=== PATIENT | female | born 1960 | race Caucasian/White ===

== ENCOUNTER 2017-11-26 08:43 | Emergency (ER) | payer OTHER ==
[2017-11-26] MEDS ORDERED: Adacel (T-DAP) 0.5 ML VIAL ONE (09:05)
[2017-11-26] MEDS ORDERED: HYDROcodone/Acetaminophen 5/325 mg Tablet ONE (09:11)
[2017-11-26] MEDS ORDERED: Cephalexin 250 MG CAP ONE (09:13)
[2017-11-26] MEDS ORDERED: Lidocaine 1% PF 5 ML VIAL ONE (09:30)
--- NOTE | 2017-11-26 09:49 | RAD ---
LEFT HAND THREE VIEWS: History: 57-year-old female with history of left hand pain and swelling following an injury to the left middle digit. FINDINGS: There is some focal soft tissue swelling on the volar aspect of the distal middle finger. No evidence for fracture or dislocation. No overt foreign body. IMPRESSION: Degenerative changes. No fracture or dislocation. Focal soft tissue swelling on the volar aspect of t he distal middle finger without evidence for overt foreign body. POS: TC
== END 2017-11-26 10:42 | disposition home or self-care (01) ==
LOC: ERS 08:43
DX: S61.213A Laceration without foreign body of left middle finger without damage to nail, initial encounter (principal); I10 Essential (primary) hypertension; G40.909 Epilepsy, unspecified, not intractable, without status epilepticus; F41.9 Anxiety disorder, unspecified; F32.9 Major depressive disorder, single episode, unspecified; F17.210 Nicotine dependence, cigarettes, uncomplicated; W01.0XXA Fall on same level from slipping, tripping and stumbling without subsequent striking against object, initial encounter
CPT/HCPCS: 12002; 90471; 90715; 99406; J2001

== ENCOUNTER 2018-01-14 11:07 | Outpatient (CLI) | payer OTHER | END 2018-01-14 11:08 | disposition home or self-care (01) | LOC: BICRAD 11:07 | PROVIDERS: ATTEND Internal Medicine | DX: M05.59 Rheumatoid polyneuropathy with rheumatoid arthritis of multiple sites (principal); M79.642 Pain in left hand; M79.641 Pain in right hand; M19.041 Primary osteoarthritis, right hand; M19.042 Primary osteoarthritis, left hand ==

== ENCOUNTER 2019-07-23 06:25 | Day surgery (SDC) | payer OTHER ==
[2019-07-05 11:30] VITALS: BMI 24.5
[2019-07-23 08:06] LABS: #Basophils 0.1 thou/uL (0.0-0.2); #Lymphocytes 3.7 thou/uL (1.20-3.40); #Monocytes 0.7 thou/uL (0.11-0.59); #Neutrophils 8.5 thou/uL (1.40-6.50); %Eosinophils 0.3 % (0.0-10.0); %Lymphocytes 28.6 % (21.0-51.0); %Monocytes 5.3 % (0.0-10.0); %Neutrophils 64.9 % (42.0-75.0); Hemoglobin 13.3 g/dL (12.0-16.0); Mean Corpuscular HGB CONC 32.8 g/dL (32.0-36.0); Mean Corpuscular Hemoglobin 31.5 pg (27.0-31.0); Mean Platelet Volume 7.1 fL (7.4-10.4); Platelet Count 429 thou/uL (130-400); RBC Distribution Width 13.6 % (11.5-14.5); Red Blood Cell (RBC) Count 4.21 mill/uL (4.20-5.40); White Blood Cell (WBC) Count 13.1 thou/uL (4.8-10.8)
--- NOTE | 2019-07-23 08:08 | RAD ---
CHEST 1 VIEW: HISTORY: Preoperative evaluation. COMPARISON: 02/04/2007. FINDINGS: Heart size is normal. The lungs are clear. Minimal right rib deformity which is old. No confluent pneumonia, overt edema, or pleural effusion. IMPRESSION: No acute intrathoracic disease. POS: TPC
[2019-07-23 08:11] LABS: Prothrombin Time 12.9 SEC (12.0-14.7)
[2019-07-23 08:12] LABS: PTT 31.7 SEC (22.9-36.1)
[2019-07-23 08:27] LABS: ALT (SGPT) Less than 7 U/L (8-55); AST (SGOT) 10 U/L (5-34); Albumin 4.1 g/dL (3.5-5.0); Alkaline Phosphatase 75 U/L (40-110); Anion Gap 13 mmol/L (10-20); BUN (Urea Nitrogen) 10 mg/dL (9.8-20.1); Bilirubin, Total 0.2 mg/dL (0.2-1.2); Calc. Creatinine Clearance 80 mL/min (70-130); Carbon Dioxide 25 mmol/L (22-29); Chloride 102 mmol/L (98-107); Cholesterol 194 mg/dl (< 200 Desired); Estimated GFR-MDRD 68; Globulin 3.3 g/dL (2.4-3.5); Glucose 96 mg/dL (70-105); HDL Cholesterol 49 mg/dL (>60 Neg Risk); LDL Cholesterol, Calculated 120 mg/dL; Potassium 4.1 mmol/L (3.5-5.1); Protein, Total 7.4 g/dL (6.0-8.3); Sodium 136 mmol/L (136-145); Triglycerides 127 mg/dL (Less than 150)
[2019-07-23] MEDS ORDERED: Lidocaine 1% (PF) 30 ML VIAL ONE (08:47)
--- NOTE | 2019-07-23 13:45 | DIS ---
DATE OF ADMISSION: 07/23/2019 DATE OF DISCHARGE: DATE OF THE OUTPATIENT PROCEDURE: 07/23/2019. She was admitted with a diagnosis for lower extremity claudication with evidence of peripheral vascular disease by arterial Doppler evaluation. EARLIER DIAGNOSES: Include tobacco abuse, hyperlipidemia, as well as hypertension. Tobacco abuse at least 1 to 1-1/2 packs per day for many years. DISCHARGE DIAGNOSES: Include tobacco abuse, hyperlipidemia, as well as hypertension, tobacco abuse at least 1 to 1-1/2 packs per day for many years. She was also found to have severe peripheral vascular disease involving the right common and external iliac. DISCHARGE MEDICATIONS: Include; 1. Gabapentin 300 mg once a day. 2. Toprol-XL 100 mg 24-hour tablet once a day. 3. Paxil 40 mg q.a.m. 4. Xanax as needed twice a day. 5. ProAir as needed. 6. Dilantin 100 mg 3 times a day. 7. Hydrochlorothiazide 25 mg once a day. Her followup will be with me in the office in the next month or so. I have asked the CT surgeons to evaluate her. She may need to undergo the procedures as noted above. PROCEDURE IN HOSPITAL: Included a distal aortogram with runoff to lower extremities. HOSPITAL COURSE: A very pleasant 58-year-old female, who continues to smoke tobacco, was found to have significant peripheral vascular disease and may need to undergo further evaluation as noted above. She has had the procedures performed and has severe stenosis involving the right common and external iliac. We will await the decision from the CT surgeons prior to further recommendations. Job ID: [id number]
[2019-07-23] MEDS ORDERED: Acetaminophen/Codeine 30-300mg Tablet ONE (13:50)
--- NOTE | 2019-07-23 14:20 | EKG ---
Test Reason : PREOP Blood Pressure : / mmHG Vent. Rate : 072 BPM Atrial Rate : 072 BPM P-R Int : 146 ms QRS Dur : 078 ms QT Int : 390 ms P-R-T Axes : 040 051 042 degrees QTc Int : 427 ms Normal sinus rhythm Normal ECG When compared with ECG of 24-JUL-2016 21:38, No significant change was found Confirmed by DR. Hair RODRIGUEZ ([id number]) on 07/23/2019 2:20:19 PM Referred By: CLAUDIA Confirmed By:DR. Hair RODRIGUEZ
[2019-07-23] MEDS ORDERED: Iopamidol 370 76% 100 ML VIAL ONE (15:26)
--- NOTE | 2019-07-23 16:16 | CCL ---
DATE OF PROCEDURE: 07/23/19 INDICATION FOR PROCEDURE: 58-year-old female with history of hypertension, hyperlipidemia, tobacco abuse who complained of lower extremity claudication. She underwent Doppler evaluation and was found to have severe decreased flow in the right lower extremity. She was advised to undergo a peripheral arteriogram. She was taken to the [facility] where she was prepped and draped in the sterile fashion. She did not have a right femoral pulse, was not able to palpate that. She did have a left femoral pulse which was palpable. It was always felt that the right leg was worse. We were able to engage into the left femoral artery with an 5F introducer sheath using a #5 Belgian contra catheter and advanced to the distal aorta. Images were obtained. This shows heavy calcifications in the common iliac on the right side as well as severe calcifications noted in the external iliac in the proximal area and again in the mid area was noted aortic calcifications. At the end of the procedure there was a 40 mm gradient across the right external iliac from the aorta to the distal external iliac. The left external iliac also has some mild plaque formation calcium but no significant gradient was noted from the aorta to the left common iliac and also the left external iliac. Bilateral common femoral arteries, superficial femoral arteries , popliteal, tibial, peroneal trunk, anterior tibials, posterior tibials and peroneals do not appear to have any significant flow limiting disease. She did have two vessel runoff to both lower extremities. Did not appear to have any significant calcifications or stenosis noted in these vessels. IMPRESSION: Severe calcifications and stenosis of the right common iliac extending down into the right external iliac. We will ask the surgeons to evaluate for possible aortofemoral bypass or aortoiliac bypass and we will also consider a femorofemoral bypass since there was no significant gradient noted on the left distal external iliac and the common femoral artery. JERAD
== END 2019-07-23 15:42 | disposition home or self-care (01) ==
LOC: CCL 06:25
PROVIDERS: ATTEND Internal Medicine Cardiovascular Disease
PROC: B41D1ZZ Fluoroscopy of Aorta and Bilateral Lower Extremity Arteries using Low Osmolar Contrast (ICD-10-PCS; principal; 2019-07-23)
DX: I73.9 Peripheral vascular disease, unspecified (principal); I77.1 Stricture of artery; I10 Essential (primary) hypertension; E78.5 Hyperlipidemia, unspecified; F17.210 Nicotine dependence, cigarettes, uncomplicated; Z79.899 Other long term (current) drug therapy
CPT/HCPCS: 36200; 36415; 71045; 75625; 75716; 76942; 80053; 80061; 85025; 85610; 85730; 93005; 93010; C1725; C1769; J1644; J2001; Q9967

== ENCOUNTER 2019-08-18 09:58 | Day surgery (SDC) | payer OTHER ==
[2019-08-17 11:29] VITALS: BMI 23.5
[~2019-08-18 09:58] MED LIST: Iopamidol 370 76% 50 ML VIAL FS ONE
[2019-08-18] MEDS ORDERED: Iopamidol 370 76% 50 ML VIAL FS ONE (11:26)
[2019-08-18] MEDS ORDERED: Lidocaine 1% (PF) 30 ML VIAL ONE (11:43)
[2019-08-18] MEDS ORDERED: Heparin (Artline) 500 ML ONE (11:43)
[2019-08-18] MEDS ORDERED: diphenhydrAMINE 50 MG/ML VIAL ONE (11:52)
[2019-08-18] MEDS ORDERED: Hydrocortisone Sod Succ/PF 100 mg/2 ml Vial ONE (11:52)
[2019-08-18] MEDS ORDERED: Midazolam HCl 2 mg/2 ml Vial ONE ×2 (12:27→13:01)
[2019-08-18] MEDS ORDERED: Fentanyl 100 MCG/2 ML VIAL ONE ×2 (12:27→13:32)
[2019-08-18] MEDS ORDERED: Heparin 10,000 UNITS/1 ML VIAL ONE (13:01)
--- NOTE | 2019-08-18 13:49 | OP ---
DATE OF PROCEDURE: 08/18/2019 PREOPERATIVE DIAGNOSIS: Peripheral vascular disease with bilateral lower extremity severe claudication. POSTOPERATIVE DIAGNOSIS: Peripheral vascular disease with bilateral lower extremity severe claudication. PROCEDURES PERFORMED: 1. Abdominal aortogram. 2. Right common iliac artery angiogram. 3. Bilateral kissing iliac stents with a 7 x 37 Express LD on the right and a 7 x 37 Express LD on the left. 4. Right distal common iliac artery stenting with a 7 x 27 Express LD stent. TOTAL CONTRAST: 28 mL. TOTAL FLUORO TIME: 4.9 minutes. ESTIMATED BLOOD LOSS: 100. DESCRIPTION OF PROCEDURE: After consent was obtained, the patient was brought to the shrimp pond laborer and placed in supine position on shrimp pond laborer table. Appropriate central line and monitors was placed. The patient was given 3 mg total of versed and 75 mcg of fentanyl. 1% lidocaine was used for local. Using ultrasound guidance, the right groin was anesthetized and percutaneous access obtained of the right common femoral artery. A 5-[place]ican sheath was placed into the iliac system. The iliac stenosis was traversed with the angled [place] catheter and Bentson wire. Abdominal aortogram was performed with the tip of the catheter in the lower abdominal aorta. This confirmed bilateral iliac stenoses with a 2nd area of stenosis in the common iliac artery distal to the bifurcation. We selected an appropriately sized stents. The left groin was approached in a similar fashion. A 6-[place] Marker sheath was passed over the guidewire into the abdominal aorta. The 5-[place] sheath on the right was exchanged for a 6-[place] Marker sheath, which was again positioned in the abdominal aorta. Our 7 x 37 stents were brought through the sheath and positioned at the aortic bifurcation. Sheaths were withdrawn proximal to the stent deployment device. The stents were simultaneously inflated and good result was obtained visually. Followup aortogram showed no evidence of any residual stenosis. The 2nd area of stenosis in the common iliac artery on the right was approached with a 7 x 27 Express LD stent. This was inflated to 10 mmHg with a good angiographic result at completion. The groins were closed with ProGlide with good hemostasis. The patient was transferred to the recovery area to be sent home later today. Job ID: [id number]
== END 2019-08-18 16:30 | disposition home or self-care (01) ==
LOC: CCL 09:58
PROVIDERS: ATTEND Thoracic Surgery (Cardiothoracic Vascular Surgery)
PROC: 047C3DZ Dilation of Right Common Iliac Artery with Intraluminal Device, Percutaneous Approach (ICD-10-PCS; principal; 2019-08-18)
PROC: 047D3DZ Dilation of Left Common Iliac Artery with Intraluminal Device, Percutaneous Approach (ICD-10-PCS; principal; 2019-08-18)
DX: I70.213 Atherosclerosis of native arteries of extremities with intermittent claudication, bilateral legs (principal); I10 Essential (primary) hypertension; F41.9 Anxiety disorder, unspecified; F17.210 Nicotine dependence, cigarettes, uncomplicated; M17.0 Bilateral primary osteoarthritis of knee; Z79.899 Other long term (current) drug therapy; Z88.5 Allergy status to narcotic agent; Z91.041 Radiographic dye allergy status
CPT/HCPCS: 37221; 37223; 76942; 85347; 99152; 99153; C1725; C1760; C1769; C1876; J1200; J1644; J1720; J2001; J2250; J3010; Q9967

== ENCOUNTER 2020-05-19 09:21 | Outpatient (CLI) | payer OTHER ==
--- NOTE | 2020-05-19 11:08 | CT ---
CT angiogram abdomen and pelvis with IV contrast and 3-D reconstructions CT angiogram bilateral lower extremities with runoff to the feet with IV contrast and 3-D reconstruct ions HISTORY: Peripheral vascular disease. Patient states severe right groin pain. History of vascular stents place d in arteries and lower extremities. COMPARISON: None FINDINGS: None approximately 5 mm groundglass nodule is seen in the posterior aspect right middle lobe. Follow- up evaluation is recommended. Lung bases are otherwise clear. The liver, spleen, pancreas, bilateral adrenal glands, and kidneys demonstrate a normal CT appearance for arterial phase of imaging. The urinary bladder is decompressed. Uterus is small in size. Loops of small bowel are normal in caliber. Small amount of retained fecal material seen throughout t he colon. Surgical clips are seen in the right pelvis. Dense vascular calcifications are seen in the abdominal aorta and involving the iliac arteries. Mild narrowing is present involving the origins of the celiac and superior mesenteric arteries. Origin of the JENNY is obscured due to dense vascular calcifications. Single patent right renal artery is pres ent. Single left renal artery is present with mild narrowing proximally. There is mild luminal narrowing involving the infrarenal abdominal aorta due to dense vascular calcif ications. Bilateral common iliac artery stents are noted in place with calcifications seen posterior to the iliac artery stents. There is also evidence of a distal right common iliac artery st ent. Dense vascular calcifications are seen in the iliac arteries. There is mild narrowing at the origin of the internal iliac arteries bilaterally. Bilateral external iliac arteries are patent. Bilateral lower extremity runoff: Right lower extremity: Mild atherosclerotic plaque and calcifications are seen in the right common femoral artery with mild degree of narrowing present. The right profunda femoral artery is patent. Right superficial femoral and popliteal arteries are patent. There is three-vessel runoff to the right lower extremity. Left lower extremity: Mild atherosclerotic plaque and calcifications are seen involving the left common femoral artery with mild narrowing involving the left common femoral artery. There is mild/moderate narrowing at the origin of the left superficial femoral artery. The left profunda femoral artery is patent and the rem ainder of the left superficial femoral artery is patent. Left popliteal artery is patent. There is three-vessel runoff to the left lower extremity. There is calcification in the proximal left anterior tibial artery which limits adequate evaluation of the lumen in this region. IMPRESSION: 1. Small 5 mm groundglass nodule right middle lobe. Follow-up CT thorax in 6 months is recommended. 2. Atherosclerotic vascular disease primarily involving the abdominal aorta and iliac arteries. Vascu lar stents are present in the iliac arteries bilaterally. 3. Three-vessel runoff to the bilateral lower extremities without high-grade stenosis appreciated.
[2020-05-19] MEDS ORDERED: Iopamidol-370 76% 500 ML 1 ML ONE (11:26)
== END 2020-05-19 09:22 | disposition home or self-care (01) ==
LOC: BICCT 09:21
PROVIDERS: ATTEND Thoracic Surgery (Cardiothoracic Vascular Surgery)
DX: I73.9 Peripheral vascular disease, unspecified (principal); R91.1 Solitary pulmonary nodule; I70.0 Atherosclerosis of aorta
CPT/HCPCS: 75635; Q9967

== ENCOUNTER 2020-05-23 07:49 | Outpatient (CLI) | payer OTHER | END 2020-05-23 07:50 | disposition home or self-care (01) | LOC: LABBT 07:49 | PROVIDERS: ATTEND Orthopaedic Surgery Hand Surgery | DX: Z01.810 Encounter for preprocedural cardiovascular examination (principal); M15.2 Bouchard's nodes (with arthropathy) | CPT/HCPCS: 93005; 93010 ==

== ENCOUNTER 2020-07-04 08:29 | Day surgery (SDC) | payer OTHER ==
[2020-06-29 18:34] LABS: #Basophils 0.1 thou/uL (0.0-0.2); #Lymphocytes 5.7 thou/uL (1.20-3.40); #Monocytes 1.2 thou/uL (0.11-0.59); #Neutrophils 6.7 thou/uL (1.40-6.50); %Eosinophils 0.2 % (0.0-10.0); %Lymphocytes 41.2 % (21.0-51.0); %Monocytes 8.5 % (0.0-10.0); %Neutrophils 49.1 % (42.0-75.0); Hemoglobin 14.1 g/dL (12.0-16.0); Mean Corpuscular HGB CONC 32.4 g/dL (32.0-36.0); Mean Corpuscular Hemoglobin 32.1 pg (27.0-31.0); Mean Platelet Volume 7.9 fL (7.4-10.4); Platelet Count 308 thou/uL (130-400); RBC Distribution Width 12.7 % (11.5-14.5); Red Blood Cell (RBC) Count 4.39 mill/uL (4.20-5.40); White Blood Cell (WBC) Count 13.7 thou/uL (4.8-10.8)
[2020-06-29 19:25] LABS: Bilirubin Negative (Negative); Blood, Urine Negative (Negative); Clarity Clear (Clear); Glucose, Urine (Dipstick) Normal (Negative); Ketone, Urine Negative (Negative); Leukocyte Negative Leu/uL (Negative); Nitrite Negative (Negative); Protein, Urine (Dipstick) 10 mg/dL (Neg-Trace); Specific Gravity, Urine 1.032 (1.002-1.036); Squamous Epithelial 0-3 HPF (0-3); Urobilinogen Normal mg/dL (Less than 2); WBC/HPF 0-3 HPF (0-3)
[2020-06-29 19:29] LABS: Bacteria/HPF 1+ HPF (None Seen)
[2020-06-29 21:41] LABS: Anion Gap 18 mmol/L (10-20); BUN (Urea Nitrogen) 11 mg/dL (9.8-20.1); Calc. Creatinine Clearance 0 mL/min (70-130); Carbon Dioxide 21 mmol/L (22-29); Chloride 102 mmol/L (98-107); Estimated GFR-MDRD 58; Glucose 86 mg/dL (70-105); Potassium 5.2 mmol/L (3.5-5.1); Sodium 136 mmol/L (136-145)
[2020-06-30 12:33] LABS: SARS-CoV-2 MS2 Positive; SARS-CoV-2 N Gene Negative; SARS-CoV-2 S Gene Negative; SARS-CoV-2 by NAA Not Detected (NotDetected); SARS-CoV-2 orf1ab Negative
[2020-07-03 09:01] VITALS: BMI 25.3
[2020-07-04] MEDS ORDERED: Fentanyl 100 MCG/2 ML VIAL ONE ×2 (09:00→10:04)
[2020-07-04] MEDS ORDERED: Midazolam HCl 2 mg/2 ml Vial ONE (09:00)
[2020-07-04] MEDS ORDERED: PROPOFOL 200 MG/20 ML VIAL ONE (09:46)
[2020-07-04] MEDS ORDERED: EPHEDRINE 25 MG/5 ML SYRINGE ONE (09:46)
[2020-07-04] MEDS ORDERED: Lidocaine 1% PF 5 ML VIAL ONE (09:46)
[2020-07-04] MEDS ORDERED: PHENYLEPHRINE-NS 100 MCG/ML 10 ML SYRINGE ONE (09:46)
[2020-07-04] MEDS ORDERED: Dexamethasone 20 MG/5 ML VIAL ONE (09:46)
[2020-07-04] MEDS ORDERED: Bupivacaine HCl 0.5%/Epinephrine 1:200,000/PF 30 ml Vial ONE (09:46)
[2020-07-04] MEDS ORDERED: Ondansetron PF 4 MG/2 ML Vial ONE (09:46)
[2020-07-04] MEDS ORDERED: Betamet Acet/Betamet Na Ph 30 MG/5 ML VIAL ONE (09:53)
[2020-07-04] MEDS ORDERED: Bupivacaine PF 0.5% 30 ML VIAL ONE (09:53)
[2020-07-04] MEDS ORDERED: Bacitracin Zinc Ointment 30 gm TUBE ONE (09:54)
[2020-07-04] MEDS ORDERED: Sodium Chloride 0.9% 10 ML ONE (09:54)
--- NOTE | 2020-07-04 13:18 | RAD ---
Intraoperative imaging of the right hand: 07/04/2020 HISTORY: Finger arthroplasty FINDINGS: 3 intraoperative images are provided. Detailed assessment is limited secondary to technique . There is intraoperative gas at the level of the fourth proximal phalanx distally with findings suggesting partial resection of the distal aspect fourth proximal phalanx. IMPRESSION: Intraoperative imaging as above.
--- NOTE | 2020-07-04 20:29 | OP ---
DATE OF PROCEDURE: 07/04/2020 PREOPERATIVE DIAGNOSIS: Osteoarthritis with joint contracture, especially loss of extension, passive and active right ring finger PIP joint. POSTOPERATIVE DIAGNOSES: 1. Very tight volar capsule. 2. Large osteophytes. 3. Greater than 90% obliteration of the articular surface on both sides of the joint, right ring finger PIP joint. PROCEDURES PERFORMED: 1. Open volar capsulotomy, proximal interphalangeal joint. 2. Charmaine Alviso PIP joint arthroplasty, right ring finger. 3. C-arm supervision. SPECIMENS: None. ESTIMATED BLOOD LOSS: Less than or equal to 10 mL. TOURNIQUET TIME: 90 minutes. INDICATIONS FOR PROCEDURE: The patient failed conservative treatments including injection therapy, bracing, splinting, anti-inflammatory, [id number] medicines for severe osteoarthritis with large osteophytes and loss of 25 degrees of flexion and loss of 20 degrees of extension even though with a very poor arc. DESCRIPTION OF PROCEDURE: After successful general endotracheal anesthesia, the limb was prepped and draped. The patient had time-out done appropriately. She already had a block in place, so we did not augment this with Marcaine. We outlined the Z incision, beginning in the midportion between the proximal and distal interphalangeal joints going to the level of the proximal third of the proximal phalanx. Once we dissected out the soft tissue flaps, we obtained some hemostasis and then we identified the extensor mechanism. We released the extensor mechanism using a dual Z-plasty, and then we were able to visualize the joints. First, we released the volar plate, as even with this, we could only passively extend the joint to -20. We released enough of the volar plate. We then performed osteophyte removal of the palmar aspect of the base of the middle phalanx. We now had the palmar capsule protect the proximal phalanx neck, and we visualized the soft tissue envelope between the extensor mechanism and the shaft, made a saw cut with a 1 cm oscillating blade and protected the underlying soft tissue. We removed the cut in the sagittal plane. Then, we made a frontal plane cut of the remaining chondral surface. It was here we saw a degree of arthritis as described above. We used a denilson to remove most of the arthritic portions of the base of the middle phalanx, removed the osteophytes of the same as described for the neck of the proximal phalanx, and then used a denilson to find the canal on both proximal and distal aspects. We then used a Starter Broach to make sure we were in the canal appropriately, which we were, and then we began to successfully ream, but only size 2 fit. For this reason, after we finished the reaming and broaching, we placed the size 2 trial and it was excellent fit length with no instability. The collaterals had been tagged with a 4-0 Prolene in a Sheela type suture, we then used a 0.045 K-wire, placed it back to the bone almost to the radial ulnar side. Since the #2 trial fit well with the suture anchor, we picked the #2 final prosthesis, soaked it for 2 minutes in normal saline and dried it, placed it in the wound in appropriate orientation. We then did an AP and lateral x-ray after we tied the collaterals with the heavy Prolene in the central position and saw this was well maintained and even at 95 degrees of flexion passively, it did not sublux. We obtained hemostasis with tourniquet deflated. We closed the incision by first closing the underlying soft tissue between the bone and the tendon with 4-0 Vicryl buried interrupted [id number] x3. We used a buried interrupted [id number] to close the transverse limbs of the extensor repair with Prolene 4-0. Knot was buried. We used the same running technique to close the space between the lateral and radial aspect of the extensor mechanism down to its insertion. C-arm took final pictures, we obtained hemostasis with tourniquet deflated, closed the wound with interrupted 4-0 nylon simple pattern, placed in a bulky dressing with no hemorrhage and a splint in neutral position at the PIP, DIP, and MP. Job ID: [id number]
--- NOTE | 2020-07-07 13:16 | EKG ---
Test Reason : PREOP Blood Pressure : / mmHG Vent. Rate : 061 BPM Atrial Rate : 061 BPM P-R Int : 174 ms QRS Dur : 086 ms QT Int : 426 ms P-R-T Axes : 051 058 050 degrees QTc Int : 428 ms Normal sinus rhythm Septal infarct , age undetermined Abnormal ECG No previous ECGs available Confirmed by DR. Simon TEMPLE ([id number]) on 07/07/2020 1:15:29 PM Referred By: MELANIE Confirmed By:DR. Simon TEMPLE
== END 2020-07-04 14:20 | disposition home or self-care (01) ==
LOC: SDC 08:29
PROVIDERS: ATTEND Orthopaedic Surgery Hand Surgery
PROC: 0RRW0JZ Replacement of Right Finger Phalangeal Joint with Synthetic Substitute, Open Approach (ICD-10-PCS; principal; 2020-07-04)
DX: M19.041 Primary osteoarthritis, right hand (principal); M67.441 Ganglion, right hand; M25.741 Osteophyte, right hand; I10 Essential (primary) hypertension; G40.909 Epilepsy, unspecified, not intractable, without status epilepticus; F41.9 Anxiety disorder, unspecified; Z79.82 Long term (current) use of aspirin; Z79.899 Other long term (current) drug therapy; Z88.5 Allergy status to narcotic agent; Z95.5 Presence of coronary angioplasty implant and graft; Z01.812 Encounter for preprocedural laboratory examination; Z20.828 Contact with and (suspected) exposure to other viral communicable diseases
CPT/HCPCS: 76000; 80048; 81001; 85025; 87635; 88304; 93005; 93010; C1776; J0690; J0702; J1100; J2250; J2405; J2704; J3010; J3490; S0020; U0003

== ENCOUNTER 2020-10-16 20:03 | Emergency (ER) | payer OTHER ==
--- NOTE | 2020-10-16 20:38 | RAD ---
EXAM: XR Ribs Lt>=2 View STANDARD PROVIDED CLINICAL HISTORY: Left-sided rib pain after a fall this morning. COMPARISON: Chest x-ray on 07/23/2019 FINDINGS: Cardiac silhouette and pulmonary vasculature are within normal limits. Minimal atelectasis is seen in the region of the lingula. No pneumothorax or pleural effusion is evident.. Minimally fractures are seen involving the lateral left sixth and seventh ribs. There is incomplete visualizati on of postoperative changes of the left proximal humerus. Calcifications are seen overlying the left upper quadrant which are difficult to further localize. IMPRESSION: Fractures lateral left sixth and seventh ribs. Probable atelectasis in the region of the lingula.
--- NOTE | 2020-10-16 22:27 | CT ---
CT HEAD WITHOUT IV CONTRAST COMPARISON: 06/12/2014 HISTORY: Injury to right side of head after a fall. TECHNIQUE: Axial CT imaging at 5 mm intervals from vertex through skull base without contrast FINDINGS: Mild cerebral volume loss is again present. There is no evidence of an acute infarction, hemorrhage, mass effect, or midline shift. The ventricular system is normal in size, shape, and position. Vascular calcifications are seen in the carotid siphons and distal vertebral arteries. Mucosal thickening seen bilateral ethmoidal air cells and involving each sphenoid sinus. Mastoid air cells are clear. Osseous structures appear intact.No other interval change. IMPRESSION: 1. No acute intracranial abnormality demonstrated. 2. Sinus disease.
[2020-10-16] MEDS ORDERED: Ketorolac Tromethamine 30 MG/ML VIAL ONE (22:37)
== END 2020-10-16 23:07 | disposition home or self-care (01) ==
LOC: ERS 20:03
DX: S22.42XA Multiple fractures of ribs, left side, initial encounter for closed fracture (principal); I10 Essential (primary) hypertension; F17.210 Nicotine dependence, cigarettes, uncomplicated; Z79.899 Other long term (current) drug therapy; W01.198A Fall on same level from slipping, tripping and stumbling with subsequent striking against other object, initial encounter
CPT/HCPCS: 70450; 96372; J1885

== ENCOUNTER 2020-12-13 14:07 | Outpatient (CLI) | payer OTHER | END 2020-12-13 14:08 | disposition home or self-care (01) | LOC: RAD-FRANK 14:07 | PROVIDERS: ATTEND Nurse Practitioner Family | DX: M79.622 Pain in left upper arm (principal); S42.302D Unspecified fracture of shaft of humerus, left arm, subsequent encounter for fracture with routine healing ==

== ENCOUNTER 2021-02-13 17:25 | Emergency (ER) | payer OTHER ==
[2021-02-13 18:00] LABS: Bilirubin Negative (Negative); Blood, Urine 2+ (Negative); Clarity Turbid (Clear); Glucose, Urine (Dipstick) Normal (Negative); Ketone, Urine Negative (Negative); Leukocyte 250 Leu/uL (Negative); Nitrite Negative (Negative); Protein, Urine (Dipstick) 20 mg/dL (Neg-Trace); Specific Gravity, Urine 1.023 (1.002-1.036); Urobilinogen Normal mg/dL (Less than 2); WBC/HPF 21-50 HPF (0-3); pH, Urine 5.5 (5.0-9.0)
[2021-02-13 18:00] LABS: #Basophils 0.1 thou/uL (0.0-0.2); #Lymphocytes 2.6 thou/uL (1.20-3.40); #Monocytes 0.6 thou/uL (0.11-0.59); #Neutrophils 10.7 thou/uL (1.40-6.50); %Basophils 0.6 % (0.0-1.0); %Eosinophils 0.1 % (0.0-10.0); %Lymphocytes 18.7 % (21.0-51.0); %Monocytes 4.5 % (0.0-10.0); %Neutrophils 76.1 % (42.0-75.0); Hemoglobin 12.7 g/dL (12.0-16.0); Mean Corpuscular HGB CONC 33.8 g/dL (32.0-36.0); Mean Corpuscular Hemoglobin 31.6 pg (27.0-31.0); Mean Corpuscular Volume 93.6 fL (78.0-98.0); Mean Platelet Volume 8.2 fL (7.4-10.4); Platelet Count 252 thou/uL (130-400); RBC Distribution Width 14.3 % (11.5-14.5); Red Blood Cell (RBC) Count 4.03 mill/uL (4.20-5.40)
[2021-02-13 18:03] LABS: Bacteria/HPF 3+ HPF (None Seen)
[2021-02-13 18:17] LABS: Medtox Reader # READER 4
[2021-02-13 18:18] LABS: Amphetamine Not Detected (NotDetected); Barbiturates Screen Detected (NotDetected); Benzodiazepine Screen Detected (NotDetected); Cocaine Metabolite Screen Not Detected (NotDetected); Medtox Control Line Valid? VALID (VALID); Methadone Not Detected (NotDetected); Methamphetamine Not Detected (NotDetected); Opiate Screen Detected (NotDetected); Oxycodone Screen Not Detected (NotDetected); Phencyclidine (PCP) Not Detected (NotDetected); THC/Cannabinoid Screen Detected (NotDetected); Tricyclic Screen Detected (NotDetected)
[2021-02-13 18:20] LABS: ALT (SGPT) 16 U/L (8-55); AST (SGOT) 34 U/L (5-34); Acetaminophen Less than 6.0 mcg/mL (10.0-30.0); Albumin 4.2 g/dL (3.5-5.0); Alcohol Less than 10 mg/dL (Less than 10); Alkaline Phosphatase 80 U/L (40-110); Anion Gap 17 mmol/L (10-20); BUN (Urea Nitrogen) 31 mg/dL (9.8-20.1); Bilirubin, Total 0.5 mg/dL (0.2-1.2); CK (CPK) 1277 U/L (29-168); Calc. Creatinine Clearance 0 mL/min (70-130); Calcium 9.6 mg/dL (7.8-10.44); Carbon Dioxide 26 mmol/L (22-29); Chloride 99 mmol/L (98-107); Globulin 3.6 g/dL (2.4-3.5); Glucose 109 mg/dL (70-105); Potassium 4.3 mmol/L (3.5-5.1); Protein, Total 7.8 g/dL (6.0-8.3); Salicylate Less than 8.0 mg/dL (15.0-30.0); Sodium 138 mmol/L (136-145)
[2021-02-13] MEDS ORDERED: Ciprofloxacin 500 MG TAB ONE (18:26)
[2021-02-13] MEDS ORDERED: Sodium Chloride 0.9% 100 ML ONE (18:38)
[2021-02-13] MEDS ORDERED: cefTRIAXone\\ROCEPHIN 2 GM VIAL ONE (18:38)
[2021-02-13] MEDS ORDERED: Lorazepam 2 MG/ML VIAL ONE ×2 (19:52→21:27)
[2021-02-13 20:35] LABS: SARS-CoV-2 NAA Rapid Test Not Detected (NotDetected)
[2021-02-13] MEDS ORDERED: Haloperidol Lactate 5 MG/ML VIAL ONE ×2 (21:24→21:27)
[2021-02-13] MEDS ORDERED: risperiDONE 1 MG TAB ONE (22:27)
[2021-02-13] MEDS ORDERED: hydrOXYzine 25 MG TAB ONE (22:27)
[2021-02-14] MEDS ORDERED: Ciprofloxacin 500 MG TAB ONE (06:03)
[2021-02-14] MEDS ORDERED: hydrOXYzine 25 MG TAB ONE (08:54)
[2021-02-14] MEDS ORDERED: Acetaminophen 325 MG TAB ONE (08:54)
[2021-02-14] MEDS ORDERED: Ibuprofen 200 MG TAB ONE (12:33)
== END 2021-02-14 13:07 ==
LOC: ERS 17:25
DX: F23 Brief psychotic disorder (principal); N39.0 Urinary tract infection, site not specified; R74.8 Abnormal levels of other serum enzymes; G40.909 Epilepsy, unspecified, not intractable, without status epilepticus; I10 Essential (primary) hypertension; F17.210 Nicotine dependence, cigarettes, uncomplicated; Z79.899 Other long term (current) drug therapy; Z20.822 Contact with and (suspected) exposure to COVID-19
CPT/HCPCS: 36415; 80053; 80306; 80307; 81003; 81015; 82550; 85025; 87077; 87086; 87186; 96365; 96372; 96375; 96376; J0696; J1630; J2060; J3490; U0002; U0005

== ENCOUNTER 2021-05-15 15:52 | Emergency (ER) | payer OTHER ==
[2021-05-15 16:33] LABS: #Basophils 0.1 thou/uL (0.0-0.2); #Lymphocytes 3.6 thou/uL (1.20-3.40); #Monocytes 0.6 thou/uL (0.11-0.59); #Neutrophils 6.3 thou/uL (1.40-6.50); %Basophils 0.9 % (0.0-1.0); %Eosinophils 0.2 % (0.0-10.0); %Lymphocytes 34.2 % (21.0-51.0); %Neutrophils 58.8 % (42.0-75.0); Hemoglobin 12.8 g/dL (12.0-16.0); Mean Corpuscular HGB CONC 33.9 g/dL (32.0-36.0); Mean Corpuscular Hemoglobin 32.7 pg (27.0-31.0); Mean Corpuscular Volume 96.5 fL (78.0-98.0); Mean Platelet Volume 7.5 fL (7.4-10.4); Platelet Count 332 thou/uL (130-400); RBC Distribution Width 13.3 % (11.5-14.5); Red Blood Cell (RBC) Count 3.91 mill/uL (4.20-5.40); White Blood Cell (WBC) Count 10.7 thou/uL (4.8-10.8)
[2021-05-15 17:02] LABS: ALT (SGPT) 18 U/L (8-55); AST (SGOT) 31 U/L (5-34); Alkaline Phosphatase 102 U/L (40-110); Anion Gap 12 mmol/L (10-20); BUN (Urea Nitrogen) 9 mg/dL (9.8-20.1); Bilirubin, Total 0.2 mg/dL (0.2-1.2); Calc. Creatinine Clearance 0 mL/min (70-130); Calcium 9.7 mg/dL (7.8-10.44); Carbon Dioxide 33 mmol/L (22-29); Chloride 99 mmol/L (98-107); Globulin 3.5 g/dL (2.4-3.5); Glucose 117 mg/dL (70-105); Potassium 4.2 mmol/L (3.5-5.1); Protein, Total 7.5 g/dL (6.0-8.3); Sodium 140 mmol/L (136-145)
[2021-05-15] MEDS ORDERED: Ketorolac Tromethamine 30 MG/ML VIAL ONE (18:08)
== END 2021-05-15 18:17 | disposition home or self-care (01) ==
LOC: ERS 15:52
DX: L03.116 Cellulitis of left lower limb (principal); L03.115 Cellulitis of right lower limb; I10 Essential (primary) hypertension; G40.909 Epilepsy, unspecified, not intractable, without status epilepticus; F17.210 Nicotine dependence, cigarettes, uncomplicated
CPT/HCPCS: 36415; 80053; 85025; 93005; 96372; J1885

== ENCOUNTER 2022-07-28 09:58 | Emergency (ER) | payer OTHER ==
[2022-07-28] MEDS ORDERED: HYDROcodone/Acetaminophen 5/325 mg Tablet ONE (11:03)
[2022-07-28] MEDS ORDERED: Dexameth. Sod Phosp. 10 MG/ML (CHEMO USE ONLY) ONE (11:03)
== END 2022-07-28 11:26 | disposition home or self-care (01) ==
LOC: ERS 09:58
DX: M26.602 Left temporomandibular joint disorder, unspecified (principal); I10 Essential (primary) hypertension; G40.909 Epilepsy, unspecified, not intractable, without status epilepticus; Z79.899 Other long term (current) drug therapy
CPT/HCPCS: 96372; 99282; J1100

== ENCOUNTER 2023-01-29 09:18 | Outpatient (CLI) | payer OTHER | END 2023-01-29 09:19 | disposition home or self-care (01) | LOC: RAD-FRANK 09:18 | PROVIDERS: ATTEND Nurse Practitioner Family | DX: S59.902A Unspecified injury of left elbow, initial encounter (principal); M79.89 Other specified soft tissue disorders ==